=== PATIENT | female | born 1965 | race Caucasian/White ===

== ENCOUNTER 2021-02-16 13:21 | Outpatient (CLI) | payer OTHER | END 2021-02-16 13:35 | disposition home or self-care (01) | LOC: TOM 13:21 | PROVIDERS: ATTEND Psychiatry & Neurology Pain Medicine | DX: M79.642 Pain in left hand (principal); M79.641 Pain in right hand; R41.3 Other amnesia; M06.09 Rheumatoid arthritis without rheumatoid factor, multiple sites; M35.01 Sjogren syndrome with keratoconjunctivitis; R25.8 Other abnormal involuntary movements ==

== ENCOUNTER 2021-03-02 13:27 | Outpatient (CLI) | payer OTHER | END 2021-03-02 13:52 | disposition home or self-care (01) | LOC: SONOGRAMA 13:27 → MAMO-SONO 14:15 | PROVIDERS: ATTEND Specialist | DX: M79.642 Pain in left hand (principal); M79.641 Pain in right hand; M06.09 Rheumatoid arthritis without rheumatoid factor, multiple sites; M35.01 Sjogren syndrome with keratoconjunctivitis; M25.532 Pain in left wrist; M25.531 Pain in right wrist ==

== ENCOUNTER 2024-04-10 09:51 | Outpatient (CLI) | payer OTHER | END 2024-04-10 09:55 | disposition home or self-care (01) | LOC: SONOGRAMA 09:51 | PROVIDERS: ATTEND Pathology Anatomic Pathology & Clinical Pathology | DX: D44.0 Neoplasm of uncertain behavior of thyroid gland (principal); E04.2 Nontoxic multinodular goiter ==

== ENCOUNTER 2024-07-10 07:32 | Outpatient (CLI) | payer OTHER | END 2024-07-10 07:36 | disposition home or self-care (01) | LOC: SONOGRAMA 07:32 | PROVIDERS: ATTEND Pathology Anatomic Pathology & Clinical Pathology | DX: R59.0 Localized enlarged lymph nodes (principal); E04.2 Nontoxic multinodular goiter ==

== ENCOUNTER 2024-08-14 07:15 | Inpatient (IN) | payer OTHER ==
[~2024-08-14] VITALS: Ht 160 cm; Wt 67.1 kg
[2024-08-14 07:15] VITALS: BP 119/79
[~2024-08-14 07:15] MED LIST: AMLODIPINE-OLM1 EAC3; COZAAR100 MG PO; DULOXETINE HCL40 MG; FOLIC ACID0.8 M1; GABAPENTIN100 MG; GLYCOTROL CAPS1 EACH PO; METOTREXATO; NOXIFOL-D32500 UNIT PO
[2024-08-14 07:41] LABS: URINE APPEARANCE Clear; URINE BILIRRUBIN Negative (NEGATIVE); URINE BLOOD NHT; URINE COLOR Yellow; URINE GLUCOSE Negative (NEGATIVE); URINE KETONE Negative (NEGATIVE); URINE LEUKOCYTE Trace; URINE NITRATE Negative; URINE PROTEIN Negative (NEGATIVE); URINE UROBILINOGEN 0.2 E.U./dl
[2024-08-14 07:45] LABS: URINE BACTERIA 1289.8 uL (0.0-1933); URINE EPITHELIAL CELLS 46.8 uL (0.0-38.8); URINE WBC 15.1 uL (0.0-23.2)
[2024-08-14 07:51] LABS: URINE CAST 0.29 uL (0.0-1.40)
[2024-08-14 07:58] LABS: HEMATOCRIT 40.7 % (36.0-45.00); HEMOGLOBIN 13.2 g/dL (12.0-15.00); MEAN CELL VOLUME 82.3 fL (80.00-100.00); MEAN CORPUSCULAR HEMOGLOBIN 26.7 pg (27.00-32.0); MEAN CORPUSCULAR HGB CONC 32.4 g/dl (32.0-36.0); PLATELET COUNT 223 K/uL (150-450); RED BLOOD COUNT 4.95 M/uL (4.00-6.00); RED CELL DISTRIBUTION WIDTH 13.9 % (11.5-14.5)
[2024-08-14 08:21] LABS: INR 0.98; PARTIAL THROMBOPLASTIN TIME 27.9 SECONDS (22.0-34.0); PROTHROMBIN TIME 10.7 SECONDS (9.0-11.5)
[2024-08-14 08:25] LABS: ALBUMIN 4.2 gm/dL (3.4-5.0); BILIRUBIN TOTAL 0.47 mg/dL (0.3-1.2); CALCIUM 9.2 mg/dL (8.5-10.1); CREATININE SERUM 0.67 mg/dL (0.55-1.02); GFR 89.78; GLOBULINA 3.9 G/DL (2.4-3.5); POTASSIUM 4.55 mEq/L (3.5-5.1); TOTAL PROTEIN 8.1 gm/dL (6.4-8.2)
[2024-08-21] MEDS ORDERED: DEXAMETHASONE SODIUM PHOSPHATE 4 MG/ML VIAL IV ONE (08:15)
[2024-08-21] MEDS ORDERED: ISOPROPYL ALCOHOL 30 ML OUNCE TOP ONE (08:30)
[2024-08-21] MEDS ORDERED: ONDANSETRON HCL 2 MG/ML VIAL IV PRN (08:45)
[2024-08-21] MEDS ORDERED: ENALAPRILAT DIHYDRATE 1.25 MG/ML VIAL IV PRN (08:45)
[2024-08-21] MEDS ORDERED: ACETAMINOPHEN 500 MG GEL..CAP PO SCH (09:00)
[2024-08-21] MEDS ORDERED: TRAMADOL HCL 50 MG TABLET PO SCH (09:00)
[2024-08-21] MEDS ORDERED: LOSARTAN POTASSIUM 100 MG TABLET PO SCH (09:00)
[2024-08-21] MEDS ORDERED: AMLODIPINE BESYLATE 10 MG TABLET PO SCH (09:00)
[2024-08-21 16:05] VITALS: BP 131/82; O2SAT 95
[2024-08-21] MEDS ORDERED: CYCLOBENZAPRINE HCL 5 MG TABLET PO SCH (17:00)
[2024-08-21] MEDS ORDERED: PANTOPRAZOLE SODIUM 40 MG/VIAL VIAL IV PUSH SCH (21:00)
[2024-08-22 00:26] VITALS: BP 102/66; O2SAT 95
[2024-08-22 08:47] VITALS: BP 122/82; O2SAT 94
== END 2024-08-22 12:14 | disposition home or self-care (01) | DRG 627 ==
LOC: SURG 08-21 05:11 → O/R 08-21 05:11 → SURH 08-21 07:15 → O/R 08-21 12:13 → SURG 08-21 13:04
PROVIDERS: ADMIT Surgery; ATTEND Surgery
PROC: 0GTK0ZZ Resection of Thyroid Gland, Open Approach (ICD-10-PCS; principal; 2024-08-21 09:15)
DX: C73 Malignant neoplasm of thyroid gland (principal); E04.1 Nontoxic single thyroid nodule